=== PATIENT | male | born 1955 | race Caucasian/White ===

== ENCOUNTER 2022-04-12 15:27 | Emergency (ER) | payer OTHER ==
[2022-04-12] MEDS ORDERED: fentaNYL 100 MCG/2 ML SDV IVPUSH ONE (16:01)
== END 2022-04-12 17:00 | disposition home or self-care (01) ==
LOC: FB.ED 15:27
DX: G58.8 Other specified mononeuropathies (principal); Z88.0 Allergy status to penicillin
CPT/HCPCS: 96374; 99282; J3010